=== PATIENT | female | born 1960 | race Caucasian/White ===

== ENCOUNTER → 2016-11-13 | Outpatient (CLI) | payer BC ==
--- NOTE | 2016-11-14 13:24 | MM ---
Reason for exam: screening (asymptomatic). Last mammogram was performed 6 months ago. History: Patient is postmenopausal and is nulliparous. Family history of breast cancer in mother at age 74. Benign MG stereo VAD BX RT of the right breast, November 23, 2015. Benign left mammotome panel of the left breast, April 02, 2006. Reductions of both breasts, 2000. Physical Findings: A clinical breast exam by your physician is recommended on an annual basis and results should be correlated with mammographic findings. MG Screening Mammo w CAD Bilateral CC and MLO view(s) were taken. Prior study comparison: May 30, 2016, right breast MG diagnostic mammo RT w CAD. September 29, 2015, bilateral MG 3d work up w/cad KELLY. Finding: There is an equal density (isodense), obscured round mass located 4 cm from the nipple in the lower outer quadrant, anterior position of the left breast, may have been on 09/27/15 not not 09/29/15. New finding since May 30, 2016 and September 29, 2015. ASSESSMENT: Incomplete: need additional imaging evaluation, BI-RAD 0 RECOMMENDATION: Special view mammogram of the left breast. If lesion persists on supplemental views, image directed ultrasound is recommended. [facility] will attempt to contact patient to return for supplemental views and ultrasound if indicated.
== END | disposition home or self-care (01) ==
LOC: RADMAMWWP 08:12
PROVIDERS: ATTEND Family Medicine
DX: Z12.31 Encounter for screening mammogram for malignant neoplasm of breast (principal)

== ENCOUNTER → 2017-11-14 | Outpatient (CLI) | payer BC ==
--- NOTE | 2017-11-17 07:10 | MM ---
Reason for exam: screening (asymptomatic). Last mammogram was performed 1 year ago. History: Patient is postmenopausal and is nulliparous. Family history of breast cancer in mother at age 74. Benign MG stereo VAD BX RT of the right breast, November 23, 2015. Benign left mammotome panel of the left breast, April 02, 2006. Reductions of both breasts, 2000. Physical Findings: A clinical breast exam by your physician is recommended on an annual basis and results should be correlated with mammographic findings. MG 3D Screening Mammo W/Cad Bilateral CC and MLO view(s) were taken. XCCL view(s) were taken of the left breast. Prior study comparison: November 13, 2016, bilateral MG screening mammo w CAD. May 30, 2016, right breast MG diagnostic mammo RT w CAD. The breast tissue is heterogeneously dense. This may lower the sensitivity of mammography. Finding: There are typically benign round calcifications in both breasts. Previous mammotome biopsy in the right and left breast. Asymmetric breast tissue in the left breast is stable. There is no discrete abnormality. ASSESSMENT: Benign, BI-RAD 2 RECOMMENDATION: Routine screening mammogram of both breasts in 1 year.
== END | disposition home or self-care (01) ==
LOC: RADMAMWWP 06:56
PROVIDERS: ATTEND Family Medicine
DX: Z12.31 Encounter for screening mammogram for malignant neoplasm of breast (principal)
CPT/HCPCS: 77063; 77067

== ENCOUNTER → 2018-05-20 | Outpatient (CLI) | payer BC ==
[2018-05-20 17:07] LABS: C Reactive Protein 0.5 mg/dL (0.0-0.8)
[2018-05-20 17:15] LABS: Protein, Total 6.5 g/dL (6.2-8.2); T4, Free (Free Thyroxine) 1.1 ng/dL (0.80-1.80)
[2018-05-20 19:50] LABS: Hemoglobin A1C 6.3 % (4.0-6.0)
[2018-05-22 09:35] LABS: Lyme IgG/IgM 0.2 Index
[2018-05-22 12:42] LABS: Albumin 4.04 g/dL (3.80-4.90); Gamma Globulin 0.78 g/dL (0.70-1.50)
== END | disposition home or self-care (01) ==
LOC: LABWHC1 09:07
PROVIDERS: ATTEND Psychiatry & Neurology Neurology
DX: G62.9 Polyneuropathy, unspecified (principal)
CPT/HCPCS: 36415; 82607; 82747; 83036; 84165; 84439; 84443; 85652; 86038; 86140; 86618

== ENCOUNTER 2018-10-27 07:30 | Emergency (ER) | payer BC ==
[2018-10-27 07:34] VITALS: RESP 18
[2018-10-27] MEDS ORDERED: SODIUM CHLORIDE 0.9% 1,000 ML IV STA (07:46)
[2018-10-27] MEDS ORDERED: ONDANSETRON 4 MG/2 ML VIAL IVP STA (07:46)
[2018-10-27] MEDS ORDERED: MECLIZINE 12.5 MG TAB PO STA (07:46)
--- NOTE | 2018-10-27 07:50 | ED ---
Nausea/Vomiting/Diarrhea HPI - General Chief complaint: Nausea/Vomiting/Diarrhea Stated complaint: sick to stomach/off balance Time Seen by Provider: 10/27/18 07:39 Source: patient, RN notes reviewed Mode of arrival: ambulatory Limitations: no limitations - History of Present Illness Initial comments: This a 58-year-old female presents emergency Department with chief complaint of dizziness and nausea. Patient states that she's had ongoing vertigo that happens once a month. Patient states she was diagnosed by her PCP. Patient states that she had increased nausea and which this was new for her along with some diarrhea yesterday. Denies any chest pain or shortness of breath no fever or chills. Patient denies any focal weakness no difficulty and bleeding other than feeling dizzy. She is not taking any Antivert or any other medications for her dizziness. Patient denies any recent URI symptoms no fever or chills. - Related Data Home Medications Medication Instructions Recorded Confirmed Diltiazem HCl [Diltiazem ER] 240 mg PO QAM 09/13/14 10/27/18 Montelukast Sodium [Singulair] 10 mg PO HS 09/13/14 10/27/18 Simvastatin [Zocor] 20 mg PO HS 09/13/14 10/27/18 Triamterene/Hydrochlorothiazid 1 cap PO QAM 09/13/14 10/27/18 [Dyazide 37.5-25 Capsule] Carvedilol [Coreg] 12.5 mg PO BID 11/27/15 10/27/18 Fluticasone Nasal [place] [Flonase 1 - 2 spray EA NOSTRIL DAILY PRN 11/27/15 10/27/18 Nasal [place]] Baclofen [Lioresal] 10 mg PO TID PRN 10/27/18 10/27/18 Ergocalciferol (Vitamin D2) 50,000 unit PO TH 10/27/18 10/27/18 [Vitamin D2] Lisinopril [Zestril] 20 mg PO DAILY 10/27/18 10/27/18 Omeprazole [PriLOSEC] 20 mg PO AC-BID 10/27/18 10/27/18 metFORMIN HCL [Glucophage] 500 mg PO BID 10/27/18 10/27/18 Previous Rx's Medication Instructions Recorded Cephalexin [Keflex] 500 mg PO Q8HR #15 cap 10/27/18 Meclizine [Antivert] 25 mg PO TID PRN #15 tab 10/27/18 Ondansetron Odt [Zofran Odt] 4 mg PO Q8HR PRN #10 tab 10/27/18 Allergies Allergy/AdvReac Type Severity Reaction Status Date / Time No Known Allergies Allergy Verified 10/27/18 08:06 Review of Systems ROS Statement: Those systems with pertinent positive or pertinent negative responses have been documented in the HPI. ROS Other: All systems not noted in ROS Statement are negative. Past Medical History Past Medical History: GERD/Reflux, Hyperlipidemia, Hypertension, Osteoarthritis (OA) Additional Past Medical History / Comment(s): OA in bilateral knees History of Any Multi-Drug Resistant Organisms: None Reported Past Surgical History: Breast Surgery, Cholecystectomy, Hernia Repair, Orthopedic Surgery, Uterine Ablation Additional Past Surgical History / Comment(s): Sx: orthoscopic bilateral knees "cleaned up, breast reduction, bilateral big toe spurs, ghazala fundoplication Past Anesthesia/Blood Transfusion Reactions: Previous Problems w/ Anesthesia, Postoperative Nausea & Vomiting (PONV) Additional Past Anesthesia/Blood Transfusion Reaction / Comment(s): "hard to wake up" Past Psychological History: Anxiety Smoking Status: Former smoker Past Alcohol Use History: None Reported Past Drug Use History: None Reported - Past Family History Mother Family Medical History: Cancer, Hypertension Additional Family Medical History / Comment(s): CA: breast Father Family Medical History: CVA/TIA Brother(s) Family Medical History: Deep Vein Thrombosis (DVT) General Exam Limitations: no limitations General appearance: alert, in no apparent distress Head exam: Present: atraumatic, normocephalic, normal inspection Eye exam: Present: normal appearance, PERRL, EOMI. Absent: scleral icterus, conjunctival injection, periorbital swelling ENT exam: Present: normal exam, normal oropharynx, mucous membranes moist Neck exam: Present: normal inspection, full ROM. Absent: tenderness, meningismus, lymphadenopathy Respiratory exam: Present: normal lung sounds bilaterally. Absent: respiratory distress, wheezes, rales, rhonchi, stridor Cardiovascular Exam: Present: regular rate, normal rhythm, normal heart sounds. Absent: systolic murmur, diastolic murmur, rubs, gallop, clicks GI/Abdominal exam: Present: soft, normal bowel sounds. Absent: distended, tenderness, guarding, rebound, rigid Extremities exam: Present: normal inspection, full ROM, normal capillary refill. Absent: tenderness, pedal edema, joint swelling, calf tenderness Neurological exam: Present: alert, oriented X3, CN II-XII intact, reflexes normal, other (Normal Romberg, [id number] intact [id number] intact). Absent: motor sensory deficit Skin exam: Present: warm, dry, intact, normal color. Absent: rash Course Vital Signs 10/27/18 10/27/18 07:32 09:05 Temperature 98.2 F Pulse Rate 80 75 Respiratory 18 18 Rate Blood Pressure 139/95 124/74 O2 Sat by Pulse 96 98 Oximetry Medical Decision Making - Medical Decision Making 58-year-old female presented for dizziness, nausea. Patient's had ongoing symptoms which have been on and off for several months. Patient has been diagnosed with vertigo. Patient is improved after antiemetics and Antivert. Patient's labwork shows mild acute kidney injury though this may be chronic in nature with no prior labs available. Patient does have evidence urinary tract infection. Patient will be discharged on antibiotics, antiemetics and Antivert. Patient will follow-up with ENT and return parameters were discussed. - Lab Data Result diagrams: 10/27/18 08:23 10/27/18 08:23 Lab Results 10/27/18 10/27/18 10/27/18 Range/Units 08:23 08:23 08:23 WBC 11.3 H (3.8-10.6) k/uL RBC 5.55 H (3.80-5.40) m/uL Hgb 16.9 H (11.4-16.0) gm/dL Hct 49.5 H (34.0-46.0) % MCV 89.2 (80.0-100.0) fL MCH 30.5 (25.0-35.0) pg MCHC 34.2 (31.0-37.0) g/dL RDW 12.7 (11.5-15.5) % Plt Count 373 (150-450) k/uL Neutrophils % 81 % Lymphocytes % 13 % Monocytes % 4 % Eosinophils % 1 % Basophils % 0 % Neutrophils # 9.2 H (1.3-7.7) k/uL Lymphocytes # 1.5 (1.0-4.8) k/uL Monocytes # 0.4 (0-1.0) k/uL Eosinophils # 0.1 (0-0.7) k/uL Basophils # 0.0 (0-0.2) k/uL Sodium 140 (137-145) mmol/L Potassium 5.2 H (3.5-5.1) mmol/L Chloride 104 (98-107) mmol/L Carbon Dioxide 26 (22-30) mmol/L Anion Gap 10 mmol/L BUN 22 H (7-17) mg/dL Creatinine 1.41 H (0.52-1.04) mg/dL Est GFR (CKD-EPI)AfAm 47 (>60 ml/min/1.73 sqM) Est GFR (CKD-EPI)NonAf 41 (>60 ml/min/1.73 sqM) Glucose 136 H (74-99) mg/dL Calcium 10.4 H (8.4-10.2) mg/dL Total Bilirubin 0.8 (0.2-1.3) mg/dL AST 23 (14-36) U/L ALT 37 (9-52) U/L Alkaline Phosphatase 82 (38-126) U/L Troponin I <0.012 (0.000-0.034) ng/mL Total Protein 7.5 (6.3-8.2) g/dL Albumin 4.6 (3.5-5.0) g/dL Urine Color Urine Appearance (Clear) Urine pH (5.0-8.0) Ur Specific [place] (1.001-1.035) Urine Protein (Negative) Urine Glucose (UA) (Negative) Urine Ketones (Negative) Urine Blood (Negative) Urine Nitrite (Negative) Urine Bilirubin (Negative) Urine Urobilinogen (<2.0) mg/dL Ur Leukocyte Esterase (Negative) Urine RBC (0-5) /hpf Urine WBC (0-5) /hpf Ur Squamous Epith Cells (0-4) /hpf Urine Bacteria (None) /hpf Urine Mucus (None) /hpf 10/27/18 Range/Units 08:45 WBC (3.8-10.6) k/uL RBC (3.80-5.40) m/uL Hgb (11.4-16.0) gm/dL Hct (34.0-46.0) % MCV (80.0-100.0) fL MCH (25.0-35.0) pg MCHC (31.0-37.0) g/dL RDW (11.5-15.5) % Plt Count (150-450) k/uL Neutrophils % % Lymphocytes % % Monocytes % % Eosinophils % % Basophils % % Neutrophils # (1.3-7.7) k/uL Lymphocytes # (1.0-4.8) k/uL Monocytes # (0-1.0) k/uL Eosinophils # (0-0.7) k/uL Basophils # (0-0.2) k/uL Sodium (137-145) mmol/L Potassium (3.5-5.1) mmol/L Chloride (98-107) mmol/L Carbon Dioxide (22-30) mmol/L Anion Gap mmol/L BUN (7-17) mg/dL Creatinine (0.52-1.04) mg/dL Est GFR (CKD-EPI)AfAm (>60 ml/min/1.73 sqM) Est GFR (CKD-EPI)NonAf (>60 ml/min/1.73 sqM) Glucose (74-99) mg/dL Calcium (8.4-10.2) mg/dL Total Bilirubin (0.2-1.3) mg/dL AST (14-36) U/L ALT (9-52) U/L Alkaline Phosphatase (38-126) U/L Troponin I (0.000-0.034) ng/mL Total Protein (6.3-8.2) g/dL Albumin (3.5-5.0) g/dL Urine Color Yellow Urine Appearance Cloudy H (Clear) Urine pH 5.5 (5.0-8.0) Ur Specific [place] 1.019 (1.001-1.035) Urine Protein Negative (Negative) Urine Glucose (UA) Negative (Negative) Urine Ketones Negative (Negative) Urine Blood Negative (Negative) Urine Nitrite Negative (Negative) Urine Bilirubin Negative (Negative) Urine Urobilinogen <2.0 (<2.0) mg/dL Ur Leukocyte Esterase Moderate H (Negative) Urine RBC 11 H (0-5) /hpf Urine WBC 12 H (0-5) /hpf Ur Squamous Epith Cells <1 (0-4) /hpf Urine Bacteria Occasional H (None) /hpf Urine Mucus Rare H (None) /hpf - EKG Data EKG Comments: EKG performed at 8:17 normal sinus rhythm with rate of 75 [place] 184 QRS 88 QT/QTC 400/446 Disposition Clinical Impression: Vertigo, UTI (urinary tract infection), Dehydration Disposition: HOME SELF-CARE Condition: Stable Instructions (If sedation given, give patient instructions): Vertigo (ED) Additional Instructions: Please return to the Emergency Department if symptoms worsen or any other concerns. Prescriptions: Meclizine [Antivert] 25 mg PO TID PRN #15 tab PRN Reason: Vertigo Cephalexin [Keflex] 500 mg PO Q8HR #15 cap Ondansetron Odt [Zofran Odt] 4 mg PO Q8HR PRN #10 tab PRN Reason: Nausea Is patient prescribed a controlled substance at d/c from ED?: No Referrals: Kourtney Day DO [Primary Care Provider] - 1-2 days Time of Disposition: 09:46
[2018-10-27 08:53] LABS: Basophils % (A) 0 %; Eosinophils # (A) 0.1 k/uL (0-0.7); Eosinophils % (A) 1 %; HCT 49.5 % (34.0-46.0); HGB 16.9 gm/dL (11.4-16.0); Lymphocytes # (A) 1.5 k/uL (1.0-4.8); Lymphocytes % (A) 13 %; MCH 30.5 pg (25.0-35.0); MCHC 34.2 g/dL (31.0-37.0); MCV 89.2 fL (80.0-100.0); Mean Platelet Volume 6.6; Monocytes # (A) 0.4 k/uL (0-1.0); Monocytes % (A) 4 %; Neutrophils # (A) 9.2 k/uL (1.3-7.7); Neutrophils % (A) 81 %; Platelet Count 373 k/uL (150-450); RBC 5.55 m/uL (3.80-5.40); RDW 12.7 % (11.5-15.5); WBC 11.3 k/uL (3.8-10.6)
[2018-10-27 09:06] LABS: Albumin 4.6 g/dL (3.5-5.0); Calcium 10.4 mg/dL (8.4-10.2); Potassium 5.2 mmol/L (3.5-5.1); Total Bilirubin 0.8 mg/dL (0.2-1.3); Total Protein 7.5 g/dL (6.3-8.2)
[2018-10-27 09:12] LABS: Appearance,Urine Cloudy (Clear); Bacteria,Urine Occasional /hpf; Bilirubin,Urine Negative (Negative); Blood,Urine Negative (Negative); Color,Urine Yellow; Glucose,Urine (UA) Negative (Negative); Ketones,Urine Negative (Negative); Leukocyte Esterase,Urine Moderate (Negative); Mucus,Urine Rare /hpf; Nitrite,Urine Negative (Negative); PH, Urine 5.5 (5.0-8.0); Protein,Urine Negative (Negative); RBC,Urine 11 /hpf (0-5); Specific Gravity,Urine 1.019 (1.001-1.035); Squamous Epithelial Cell,Urine <1 /hpf (0-4); Urobilinogen,Urine <2.0 mg/dL (<2.0); WBC,Urine 12 /hpf (0-5)
[2018-10-27 10:13] VITALS: BP 139/78; PULSE 71; TEMP 98.5
== END 2018-10-27 10:13 | disposition home or self-care (01) ==
LOC: EC 07:30
DX: E86.0 Dehydration (principal); N39.0 Urinary tract infection, site not specified; K21.9 Gastro-esophageal reflux disease without esophagitis; E78.5 Hyperlipidemia, unspecified; I10 Essential (primary) hypertension; F41.9 Anxiety disorder, unspecified; M17.0 Bilateral primary osteoarthritis of knee; Z87.891 Personal history of nicotine dependence; Z79.84 Long term (current) use of oral hypoglycemic drugs; Z79.899 Other long term (current) drug therapy; Z90.49 Acquired absence of other specified parts of digestive tract
CPT/HCPCS: 36415; 93005; 80053; 84484; 85025; 81001; 99284; 96374; 96361 ×2; J2405

== ENCOUNTER → 2018-11-26 | Outpatient (CLI) | payer BC ==
--- NOTE | 2018-11-27 13:04 | MM ---
Reason for exam: screening (asymptomatic). Last mammogram was performed 1 year ago. History: Patient is postmenopausal and is nulliparous. Family history of breast cancer in mother at age 74. Benign MG stereo VAD BX RT of the right breast, November 23, 2015. Benign left mammotome panel of the left breast, April 02, 2006. Reductions of both breasts, 2000. Physical Findings: A clinical breast exam by your physician is recommended on an annual basis and results should be correlated with mammographic findings. MG 3D Screening Mammo W/Cad Bilateral CC and MLO view(s) were taken. Prior study comparison: November 14, 2017, bilateral MG 3d screening mammo w/cad. November 13, 2016, bilateral MG screening mammo w CAD. The breast tissue is heterogeneously dense. This may lower the sensitivity of mammography. Nodular denisty central lower left breast anterior third position. This finding is changed when compared with previous exams. ASSESSMENT: Incomplete: need additional imaging evaluation, BI-RAD 0 RECOMMENDATION: Special view mammogram of the left breast. If lesion persists on supplemental views, image directed ultrasound is recommended. [facility] will attempt to contact patient to return for supplemental views and ultrasound if indicated.
== END ==
LOC: RADMAMWWP 14:42
PROVIDERS: ATTEND Family Medicine
DX: Z12.31 Encounter for screening mammogram for malignant neoplasm of breast (principal)
CPT/HCPCS: 77063; 77067

== ENCOUNTER → 2018-12-03 | Outpatient (CLI) | payer BC | END | disposition home or self-care (01) | LOC: RADMRIMAIN 09:23 | PROVIDERS: ATTEND Otolaryngology | DX: Z53.9 Procedure and treatment not carried out, unspecified reason (principal) ==

== ENCOUNTER → 2018-12-16 | Outpatient (CLI) | payer BC | LOC: NEUROMAIN 06:54 | PROVIDERS: ATTEND Otolaryngology | DX: Z53.9 Procedure and treatment not carried out, unspecified reason (principal) ==

== ENCOUNTER → 2018-12-22 | Outpatient (CLI) | payer BC ==
--- NOTE | 2018-12-22 11:36 | CT ---
EXAMINATION TYPE: CT iac w con DATE OF EXAM: 12/22/2018 COMPARISON: None HISTORY: dizziness for approximately one year CT DLP: 150 mGycm Automated exposure control for dose reduction was used. CONTRAST: CT scan of the IACs is performed with IV Contrast, patient injected with 100 mL of Isovue 300. FINDINGS: The external auditory canals are patent bilaterally. Mastoid air cells show no evidence of abnormal opacification bilaterally. The middle ear ossicles are symmetric and unremarkable. No cerebellopontine angle mass. Changes of chronic sinusitis noted. Left vertebral artery dominant. Intracranial atherosclerotic changes noted. Nasal septal deviation no daniel. There is a rory bullosa on the right. There is no evidence of suspicious surrounding soft tissue density to suggest cholesteatoma. The scu panchito is preserved bilaterally. The cochlea and the semicircular canals are symmetric and unremarkable. Vestibular aqueduct and inte rnal carotid canal appear unremarkable. Temporomandibular joints are maintained bilaterally. IMPRESSION: No significant abnormality seen to account for patient's symptoms.
== END ==
LOC: RADCTMAIN 10:21
PROVIDERS: ATTEND Otolaryngology
DX: H93.3X9 Disorders of unspecified acoustic nerve (principal); H91.90 Unspecified hearing loss, unspecified ear
CPT/HCPCS: 82565; 84520; 70481; 36415; Q9967

== ENCOUNTER → 2020-02-03 | Outpatient (CLI) | payer BC ==
--- NOTE | 2020-02-04 10:19 | MM ---
Reason for exam: screening (asymptomatic). Last mammogram was performed 1 year and 2 months ago. History: Patient is postmenopausal and is nulliparous. Family history of breast cancer in mother at age 74. Benign MG stereo VAD BX RT of the right breast, November 23, 2015. Benign left mammotome panel of the left breast, April 02, 2006. Reductions of both breasts, 2000. Physical Findings: A clinical breast exam by your physician is recommended on an annual basis and results should be correlated with mammographic findings. MG 3D Screening Mammo W/Cad Bilateral CC and MLO view(s) were taken. Prior study comparison: November 26, 2018, bilateral MG 3d screening mammo w/cad. November 14, 2017, bilateral MG 3d screening mammo w/cad. The breast tissue is heterogeneously dense. This may lower the sensitivity of mammography. There is chronic nodularity in the right breast. There is no dominant lesion. No significant changes when compared with prior studies. ASSESSMENT: Benign, BI-RAD 2 RECOMMENDATION: Routine screening mammogram of both breasts in 1 year.
== END | disposition home or self-care (01) ==
LOC: RADMAMWWP 09:54
PROVIDERS: ATTEND Family Medicine
DX: Z12.31 Encounter for screening mammogram for malignant neoplasm of breast (principal); Z80.3 Family history of malignant neoplasm of breast
CPT/HCPCS: 77063; 77067

== ENCOUNTER 2020-08-17 07:44 | Day surgery (SDC) | payer BC ==
[2020-08-16 08:17] VITALS: BMI 40.3
[~2020-08-17 07:44] MED LIST: LACTATED RINGERS 1,000 ML IV SCH; LIDOCAINE 1% (10MG/ML) FOR IV START INTRADERMA PRN
[2020-08-17 08:25] VITALS: TEMP 98.3
[2020-08-17 08:29] LABS: Glucose,Whole Blood 119 mg/dL (75-99)
[2020-08-17] MEDS ORDERED: LIDOCAINE 1% INJ 10MG/ML (20 ML MDV) ONE (08:50)
[2020-08-17] MEDS ORDERED: fentaNYL (PF) 50 MCG/ML 2 ML AMP ONE (08:50)
[2020-08-17] MEDS ORDERED: PROPOFOL 10 MG/ML 20 ML VIAL IV ONE (08:50)
[2020-08-17] MEDS ORDERED: MIDAZOLAM 2 MG/2 ML VIAL ONE (08:50)
--- NOTE | 2020-08-17 08:59 | P.GSHP ---
History of Present Illness H&P Date: 08/17/20 Chief Complaint: GERD This 60-year-old female who presents today for EGD. She's had issues with GERD. She's a previous hiatal hernia repair prostate 8 years ago. Past Medical History Past Medical History: Diabetes Mellitus, GERD/Reflux, Hyperlipidemia, Hypertension, Osteoarthritis (OA) Additional Past Medical History / Comment(s): OA in bilateral knees. HAS BEEN HAVING RUQ PAIN History of Any Multi-Drug Resistant Organisms: None Reported Past Surgical History: Breast Surgery, Cholecystectomy, Hernia Repair, Orthopedic Surgery, Uterine Ablation Additional Past Surgical History / Comment(s): Sx: orthoscopic bilateral knees "cleaned up, breast reduction, bilateral big toe spurs, ghazala fundoplication, BILAT BREAST BIOPSY, COLONOSCOPY, EGD Past Anesthesia/Blood Transfusion Reactions: Previous Problems w/ Anesthesia, Postoperative Nausea & Vomiting (PONV) Additional Past Anesthesia/Blood Transfusion Reaction / Comment(s): "hard to wake up" Smoking Status: Former smoker - Past Family History Mother Family Medical History: Cancer, Hypertension Additional Family Medical History / Comment(s): CA: breast Father Family Medical History: CVA/TIA Brother(s) Family Medical History: Deep Vein Thrombosis (DVT) Medications and Allergies Home Medications Medication Instructions Recorded Confirmed Type Diltiazem HCl [Diltiazem ER] 240 mg PO QAM 09/13/14 08/17/20 History Montelukast Sodium [Singulair] 10 mg PO HS 09/13/14 08/17/20 History Simvastatin [Zocor] 20 mg PO HS 09/13/14 08/17/20 History Triamterene/Hydrochlorothiazid 1 cap PO QAM 09/13/14 08/17/20 History [Dyazide 37.5-25 Capsule] Carvedilol [Coreg] 12.5 mg PO BID 11/27/15 08/17/20 History Fluticasone Nasal [place] [Flonase 1 - 2 spray EA NOSTRIL DAILY PRN 11/27/15 08/17/20 History Nasal [place]] Baclofen [Lioresal] 10 mg PO TID PRN 10/27/18 08/17/20 History Ergocalciferol (Vitamin D2) 50,000 unit PO TH 10/27/18 08/17/20 History [Vitamin D2] Omeprazole [PriLOSEC] 20 mg PO AC-BID 10/27/18 08/17/20 History lisinopriL [Zestril] 20 mg PO DAILY 10/27/18 08/17/20 History metFORMIN HCL [Glucophage] 500 mg PO BID 10/27/18 08/17/20 History Loratadine [Claritin] 10 mg PO DAILY 08/16/20 08/17/20 History Allergies Allergy/AdvReac Type Severity Reaction Status Date / Time No Known Allergies Allergy Verified 08/17/20 08:12 Surgical - Exam Vital Signs Temp Pulse Resp BP Pulse Ox 98.3 F 82 18 96/64 97 08/17/20 08:23 08/17/20 08:23 08/17/20 08:23 08/17/20 08:23 08/17/20 08:23 - General well developed, well nourished, no distress - Eyes PERRL - ENT normal pinna - Neck no masses - Respiratory normal expansion - Cardiovascular Rhythm: regular - Abdomen Abdomen: soft, non tender Results - Labs Abnormal Lab Results - Last 24 Hours (Table) 08/17/20 Range/Units 08:22 POC Glucose (mg/dL) 119 H (75-99) mg/dL Assessment and Plan Assessment: GERD. We'll perform EGD.
--- NOTE | 2020-08-17 09:07 | P.OP ---
Date of Procedure: 08/17/20 Preoperative Diagnosis: GERD Postoperative Diagnosis: Antral gastritis Procedure(s) Performed: EGD Anesthesia: MAC Surgeon: Montrell Sher Pathology: other (Antral gastritis) Condition: stable Disposition: PACU Description of Procedure: The patient's placed on the endoscopy table in the lateral position. She received IV sedation. The gastroscope placed oropharynx passed in the esophagus and into the stomach. Scope was then placed through the pylorus. First and second portion of the duodenum appeared normal. Scope summer back the antrum and this appeared mildly inflamed. A biopsies performed. Scope was then retroflexed and remainder stomach appeared normal. There was no significant hiatal hernia. The GE junction was at 40 cm The distal esophagus appeared normal. The proximal esophagus appeared normal. Scope was withdrawn for patient.
[2020-08-17 09:13] VITALS: PULSE 70; RESP 16
[2020-08-17 09:24] VITALS: BP 97/65
== END 2020-08-17 09:50 | disposition home or self-care (01) ==
LOC: ORWHC2ENDO 07:44
PROVIDERS: ATTEND Surgery
DX: K29.50 Unspecified chronic gastritis without bleeding (principal); K21.9 Gastro-esophageal reflux disease without esophagitis; I10 Essential (primary) hypertension; E78.5 Hyperlipidemia, unspecified; E11.9 Type 2 diabetes mellitus without complications; M19.90 Unspecified osteoarthritis, unspecified site; F41.9 Anxiety disorder, unspecified; Z79.02 Long term (current) use of antithrombotics/antiplatelets; Z79.84 Long term (current) use of oral hypoglycemic drugs; Z79.899 Other long term (current) drug therapy; Z98.890 Other specified postprocedural states; E66.9 Obesity, unspecified; Z68.41 Body mass index [BMI] 40.0-44.9, adult; Z80.3 Family history of malignant neoplasm of breast; Z82.49 Family history of ischemic heart disease and other diseases of the circulatory system; Z87.891 Personal history of nicotine dependence
CPT/HCPCS: 88305; 43239; J2250; J2001; J3010; J2704

== ENCOUNTER → 2020-09-07 | Outpatient (CLI) | payer BC ==
--- NOTE | 2020-09-07 09:27 | FL ---
EXAMINATION TYPE: FL UGI air w esophagus DATE OF EXAM: 09/07/2020 8:59 AM COMPARISON: NONE CLINICAL HISTORY: R10.13 dysphagia. Status post Tim fundoplication. Upper GI examination was performed according to the single contrast technique. Barium was swallowed w ithout difficulty or delay. Esophageal peristalsis and motility are within normal limits. There is no evidence for esophagitis, intraluminal mass, hiatal hernia or gastroesophageal reflux. Postsurgica l changes of the prior Tim fundoplication. The stomach has a normal appearance in terms of its siz e, shape and location. No gastric filling defects or ulcer craters are seen. The duodenal bulb and sweep are also free of intraluminal lesion or ulcer crater. IMPRESSION: Postsurgical changes of the prior Tim fundoplication. No evidence for recurrent or residual hiatal hernia.
== END | disposition home or self-care (01) ==
LOC: RADFLMAIN 07:55
PROVIDERS: ATTEND Surgery
DX: R13.10 Dysphagia, unspecified (principal); Z98.890 Other specified postprocedural states
CPT/HCPCS: 74246

== ENCOUNTER → 2021-03-15 | Outpatient (CLI) | payer BC ==
--- NOTE | 2021-03-19 12:40 | MM ---
Reason for exam: screening (asymptomatic). Last mammogram was performed 1 year and 1 month ago. History: Patient is postmenopausal and is nulliparous. Family history of breast cancer in mother at age 74. Benign MG stereo VAD BX RT of the right breast, November 23, 2015. Benign left mammotome panel of the left breast, April 02, 2006. Reductions of both breasts, 2000. Physical Findings: A clinical breast exam by your physician is recommended on an annual basis and results should be correlated with mammographic findings. MG 3D Screening Mammo W/Cad Bilateral CC and MLO view(s) were taken. Prior study comparison: February 03, 2020, bilateral MG 3d screening mammo w/cad. November 26, 2018, bilateral MG 3d screening mammo w/cad. November 14, 2017, bilateral MG 3d screening mammo w/cad. November 13, 2016, bilateral MG screening mammo w CAD. There are scattered fibroglandular densities. Finding: There are indeterminate calcifications in the lower outer quadrant of the right breast 7-8cm from the nipple. New finding since February 03, 2020, November 26, 2018, November 14, 2017, and November 13, 2016. ASSESSMENT: Incomplete: need additional imaging evaluation, BI-RAD 0 RECOMMENDATION: Special view mammogram of the right breast. [facility] will attempt to contact patient to return for supplemental views.
== END | disposition home or self-care (01) ==
LOC: RADMAMWWP 13:31
PROVIDERS: ATTEND Family Medicine
DX: Z12.31 Encounter for screening mammogram for malignant neoplasm of breast (principal); Z80.3 Family history of malignant neoplasm of breast
CPT/HCPCS: 77063; 77067

== ENCOUNTER → 2021-04-10 | Outpatient (CLI) | payer BC ==
--- NOTE | 2021-04-11 08:24 | MM ---
Reason for exam: additional evaluation requested from abnormal screening. Last mammogram was performed 1 month ago. History: Patient is postmenopausal and is nulliparous. Family history of breast cancer in mother at age 74. Benign MG stereo VAD BX RT of the right breast, November 23, 2015. Benign left mammotome panel of the left breast, April 02, 2006. Reductions of both breasts, 2000. Physical Findings: Nurse did not find any significant physical abnormalities on exam. MG Work Up Mamm w CAD RT CC with magnification, LM with magnification, and CC view(s) were taken of the right breast. Prior study comparison: March 15, 2021, bilateral MG 3d screening mammo w/cad. February 03, 2020, bilateral MG 3d screening mammo w/cad. There are scattered fibroglandular densities. Finding: There are four grouped/clustered, fine calcifications in the upper outer quadrant, middle position of the right breast, 8cm from the nipple consistent with 2020. These results were verbally communicated with the patient and result sheet given to the patient on 04/10/21. ASSESSMENT: Probably benign, BI-RAD 3 RECOMMENDATION: Follow-up diagnostic mammogram of the right breast in 6 months. (plus magnification views)
== END | disposition home or self-care (01) ==
LOC: RADMAMWWP 13:29
PROVIDERS: ATTEND Family Medicine
DX: R92.8 Other abnormal and inconclusive findings on diagnostic imaging of breast (principal)
CPT/HCPCS: 77065

== ENCOUNTER → 2021-04-24 | Outpatient (CLI) | payer BC | END | disposition home or self-care (01) | LOC: LABWHC1 11:11 | PROVIDERS: ATTEND Psychiatry & Neurology Neurology | DX: G62.9 Polyneuropathy, unspecified (principal) | CPT/HCPCS: 36415; 82607 ==

== ENCOUNTER → 2021-10-09 | Outpatient (CLI) | payer BC ==
--- NOTE | 2021-10-09 11:58 | MM ---
Reason for exam: follow-up at short interval from prior study. Last mammogram was performed 6 months ago. History: Patient is postmenopausal and is nulliparous. Family history of breast cancer in mother at age 74. Benign MG stereo VAD BX RT of the right breast, November 23, 2015. Benign left mammotome panel of the left breast, April 02, 2006. Reductions of both breasts, 2000. Physical Findings: A clinical breast exam by your physician is recommended on an annual basis and results should be correlated with mammographic findings. MG 3D Diag Mammo W/Cad RT CC and MLO view(s) were taken of the right breast. Prior study comparison: March 15, 2021, bilateral MG 3d screening mammo w/cad. February 03, 2020, bilateral MG 3d screening mammo w/cad. There are scattered fibroglandular densities. There are few, stable, benign appearing round calcifications. Previous mammotome biopsy in the right breast. There is chronic nodularity in the right breast. There is no discrete abnormality. ASSESSMENT: Benign, BI-RAD 2 RECOMMENDATION: Return to routine screening mammogram schedule for both breasts. Back on schedule.
== END | disposition home or self-care (01) ==
LOC: RADMAMWWP 09:33
PROVIDERS: ATTEND Family Medicine
DX: N63.0 Unspecified lump in unspecified breast (principal)
CPT/HCPCS: 77061; 77065

== ENCOUNTER → 2021-11-07 | Outpatient (CLI) | payer BC ==
[~2021-11-07] MED LIST changes: -LACTATED RINGERS 1,000 ML IV SCH; -LIDOCAINE 1% (10MG/ML) FOR IV START INTRADERMA PRN; +SODIUM CHLORIDE 0.9% 1,000 ML IV NR; +SODIUM CHLORIDE 0.9% 500 ML 500 ML in EMPTY BAG 1 BAG IV PRN
[2021-11-07] MEDS: SODIUM CHLORIDE 0.9% 500 ML 500 ML IV NR ×2 (11:14→11:47)
[2021-11-07 11:16] VITALS: BP 127/78; PULSE 79; RESP 16; TEMP 98.5
== END | disposition home or self-care (01) ==
LOC: PROCWHC3 10:47
PROVIDERS: ATTEND Family Medicine
DX: R93.429 Abnormal radiologic findings on diagnostic imaging of unspecified kidney (principal)
CPT/HCPCS: 36415; 82565; 84520; 96360

== ENCOUNTER → 2021-11-07 | Outpatient (CLI) | payer BC ==
--- NOTE | 2021-11-07 14:02 | CT ---
EXAMINATION TYPE: CT abdomen wo/w con DATE OF EXAM: 11/07/2021 COMPARISON: None available HISTORY: abnormal kidney US CT DLP: 2400 mGycm Automated exposure control for dose reduction was used. TECHNIQUE: Helical acquisition of images was performed from the lung bases through the top of iliac crest to include entire abdomen. CONTRAST: Performed without Oral Contrast and without and with IV Contrast, patient injected with 80ml mL of Is ovue 300. FINDINGS: LUNG BASES: Minimal bilateral pleural fluid. LIVER/GB: Previous cholecystectomy. Enlarged liver measuring 18.1 cm. No definite hepatic focal lesio n identified. PANCREAS: No significant abnormality is seen. SPLEEN: No significant abnormality is seen. ADRENALS: No significant abnormality is seen. KIDNEYS: Multiple variable sized bilateral renal cysts without suspicious feature or enhancement kia uring up to 2.1 cm on the right side and 7.1 cm on the left side consistent with benign simple cysts. No definite suspicious renal lesion identified. No hydroureter or hydronephrosis. Bilateral perineph yanet fat stranding and reactive fluid, nonspecific. BOWEL: Questionable previous fundoplication of the stomach, otherwise unremarkable nondistended stom ach, duodenum and visualized small bowel. No significant abnormality of the visualized portion of the colon. LYMPH NODES: No pathologically enlarged abdominal lymph nodes. OSSEOUS STRUCTURES: Degenerative changes of the lower thoracic and lower lumbar spine. No aggressive bone lesion. FREE AIR: No free air is visualized. OTHER: No free abdominal fluid. IMPRESSION: Bilateral renal cysts without suspicious feature or abnormal enhancement as described above consisten t with benign renal cysts. No suspicious renal lesion. Incidental findings as described above.
== END | disposition home or self-care (01) ==
LOC: RADCTMAIN 13:01
PROVIDERS: ATTEND Family Medicine
DX: N28.1 Cyst of kidney, acquired (principal); R93.429 Abnormal radiologic findings on diagnostic imaging of unspecified kidney
CPT/HCPCS: 74170; Q9967

== ENCOUNTER → 2022-03-18 | Outpatient (CLI) | payer BC ==
--- NOTE | 2022-03-18 09:56 | MM ---
Reason for Exam: Screening (asymptomatic). Last screening mammogram was performed 12 month(s) ago. Patient History: Menarche at age 10. Patient has no children. Postmenopausal. 2000, Bilateral Reduction. 11/23/2015, Benign Core Biopsy on the right side. 04/02/2006, Benign Core Biopsy on the left side. Mother had breast cancer, age 74. Risk Values: Riish 5 year model risk: 4.9%. NCI Lifetime model risk: 20.7%. Prior Study Comparison: 03/15/2021 Bilateral Screening Mammogram, [facility]. 04/10/2021 Right Diagnostic Mammogram, [facility]. 10/09/2021 Right Diagnostic Mammogram, [facility]. Tissue Density: There are scattered fibroglandular densities. Findings: Analyzed By CAD. Unchanged clustered of calcifications in the right breast middle depth laterally. There is a biopsy clip in the right breast. Bilateral breast reduction changes. There is no suspicious group of microcalcifications or new suspicious mass in either breast. Overall Assessment: Benign, BI-RAD 2 Management: Screening Mammogram of both breasts in 1 year. A clinical breast exam by your physician is recommended on an annual basis and results should be correlated with mammographic findings. Electronically signed and approved by: Manan Webb DO
== END | disposition home or self-care (01) ==
LOC: RADMAMWWP 08:17
PROVIDERS: ATTEND Family Medicine
DX: Z12.31 Encounter for screening mammogram for malignant neoplasm of breast (principal)
CPT/HCPCS: 77063; 77067

== ENCOUNTER → 2023-03-25 | Outpatient (CLI) | payer BC ==
--- NOTE | 2023-03-26 08:33 | MM ---
Reason for Exam: Screening (asymptomatic). Last mammogram was performed 1 year(s) and 1 month(s) ago. Patient History: Menarche at age 10. Patient has no children. Postmenopausal. 2000, Bilateral Reduction. 11/23/2015, Benign Core Biopsy on the right side. 04/02/2006, Benign Core Biopsy on the left side. Mother had breast cancer, age 74. Risk Values: Irish 5 year model risk: 5.1%. NCI Lifetime model risk: 20.1%. Prior Study Comparison: 04/10/2021 Right Diagnostic Mammogram, [facility]. 10/09/2021 Right Diagnostic Mammogram, [facility]. 03/18/2022 Bilateral MG 3D screening mammo w/cad, [facility]. Tissue Density: There are scattered fibroglandular densities. Findings: Analyzed By CAD. There is no suspicious group of microcalcifications or new suspicious mass in either breast. Biopsy clips within both breasts. Bilateral breast reduction changes. Stable benign calcifications within both breasts. Overall Assessment: Benign, BI-RAD 2 Management: Screening Mammogram of both breasts in 1 year. A clinical breast exam by your physician is recommended on an annual basis and results should be correlated with mammographic findings. Note on Irish scores and lifetime risk: 1. A Irish score greater than 3% is considered moderate risk. If this is the case, consider specialist referral to assess eligibility for a risk reducing agent. If overall lifetime risk for the development of breast cancer is 20% or higher, the patient may qualify for future screening with alternating mammogram and breast MRI. Electronically signed and approved by: Vega Rhoades D.O.
== END | disposition home or self-care (01) ==
LOC: RADMAMWWP 07:49
PROVIDERS: ATTEND Family Medicine
DX: Z12.31 Encounter for screening mammogram for malignant neoplasm of breast (principal); Z78.0 Asymptomatic menopausal state; Z80.3 Family history of malignant neoplasm of breast
CPT/HCPCS: 77063; 77067

== ENCOUNTER → 2024-03-30 | Outpatient (CLI) | payer BC ==
--- NOTE | 2024-03-30 13:47 | MM ---
Reason for Exam: Screening (asymptomatic). Last screening mammogram was performed 12 month(s) ago. Patient History: Menarche at age 10. Patient has no children. Postmenopausal. 2000, Bilateral Reduction. 11/23/2015, Benign Core Biopsy on the right side. 04/02/2006, Benign Core Biopsy on the left side. Mother had breast cancer, age 74. Risk Values: Irish 5 year model risk: 5.2%. NCI Lifetime model risk: 19.5%. Prior Study Comparison: 10/09/2021 Right Diagnostic Mammogram, [facility]. 03/18/2022 Bilateral MG 3D screening mammo w/cad, [facility]. 03/25/2023 Bilateral MG 3D screening mammo w/cad, [facility]. Tissue Density: The breasts are heterogeneously dense, which may obscure small masses. Findings: Analyzed By CAD. There is no suspicious group of microcalcifications or new suspicious mass in either breast. Overall Assessment: Benign, BI-RAD 2 Management: Screening Mammogram of both breasts in 1 year. . Patient should continue monthly self-breast exams. A clinical breast exam by your physician is recommended on an annual basis. This exam should not preclude additional follow-up of suspicious palpable abnormalities. Note on Irish scores and lifetime risk: 1. A Irish score greater than 3% is considered moderate risk. If this is the case, consider specialist referral to assess eligibility for a risk reducing agent. 2. If overall lifetime risk for the development of breast cancer is 20% or higher, the patient may qualify for future screening with alternating mammogram and breast MRI. Electronically signed and approved by: Mark Christiansen M.D. Radiologis
== END | disposition home or self-care (01) ==
LOC: RADMAMWWP 07:23
PROVIDERS: ATTEND Family Medicine
DX: Z80.3 Family history of malignant neoplasm of breast
CPT/HCPCS: 77063; 77067

== ENCOUNTER → 2025-02-09 | Outpatient (CLI) | payer BC, MEDICARE ==
[2025-02-09 08:34] VITALS: BP 109/69; PULSE 85; RESP 16
--- NOTE | 2025-02-09 15:55 | P.PAINPG ---
PQRS Measure Charge Sheet Comment: HISTORY OF PRESENT ILLNESS: A 64 yr old female as a referral from Dr Kourtney Day presents today w severe and chronic neck pain > 1 yr secondary to radiculopathy, spondylosis and facet arthropathy without myelopathy for evaluation. Pt states pain level is provoked at 8 /10 in intensity, constant, localized in the lower cervical spine, predominantly axial, sharp in character w occasional shooting pain towards the R> L shoulders. Pain is provoked by over head reaching. Pain is alleviated by chiropractic treatments semi monthly since Sep 2024 which she is currently in , ice, medications, manual massage, repositioning and rest . Cervical disability score at 36. PMH: OA, NIDDM II, GERD, Hyperlipidemia, HTN PSH: Breast Reduction, Cholecystectomy, Hernia Repair, Uterine Ablation, Colonoscopy/ EGD SH: Former tobacco user, Occ ETOH use, No illicit drug use FH: Mo- Breast CA. Fa- CVA. Bro- DVT All: See list Medications include Neurontin, Baclofen REVIEW OF ORGAN SYSTEMS: CONSTITUTIONAL: No fevers or chills. No recent weight loss. NEUROLOGICAL: + numbness and tingling along the distal extremities. No seizure disorders or headaches. MUSCULOSKELETAL: + pain PSYCHIATRIC: Denies current depression or suicidal tho ughts. Physical Examinations : Constitutional : Cooperative , not in acute distress . Neurologic : Cranial nerve II to XII intact. No focal neurological deficits. Psychiatric : alert & oriented x 3. Matching mood & appropriate affect. Judgment & insight intact. Musculoskeletal : Cervical Spine Motor strength in the deltoid and biceps: Normal right side. Normal Left side Motor strength biceps and the wrist extensors: Normal right side . Normal left side Motor strength in the triceps muscle: Normal right side. Normal left side Deep tendon reflexes: Normal at the biceps. Normal at Brachioradialis. Normal at triceps Lhermitte Sign (cervical flexion) positive Vertebral body tenderness to deep palpation over C6 Cervical facet loading test: positive bilaterally Spurling test: positive bilaterally Neck distraction test: positive BL C6- C7 R> L Guillermina sign: positive bilaterally Shoulders Muscle bulk/ tone/ strength BL Resisted Internal Rotation positive R / positive L Resisted External Rotation positive R / positive L Empty Can Test positive R / positive L Drop Arm Test positive R / positive L Lumbar spine Motor strength lower extremities ,thigh and legs 5/5 Right side , 5/5 Left side Deep tendon reflexes : Normal Knee Jerk. Normal Ankle Jerk Vertebral body tenderness over Proctor Test positive Lumbar facet Loading Test: positive Right / positive Left Range of motion of the lumbar spine Flexion 30 degrees, extension 10 degrees Straight Leg Raise test: Left/ Right positive at degrees Drop foot reflex: positive R / positive L Peter test: positive right / positive left. Severe tenderness over the Sacroiliac joint on the Right / Left sides Gaenslen test: positive bilaterally Sacral spine : Severe tenderness over the Sacroiliac joint: right side / left side Range of motion: Flexion of the lumbar spine <60 degrees Range of motion: Extension of the lumbar spine <20 degrees Gaenslen's Test positive Peter test: positive right side / left side Thigh Thrust Test Sacral Thrust Test Hip Joint Antalgic walking gait positive Trendelenburg positive R / positive L Imaging: MRI non contrast cervical spine from 12/27/24 reviewed Assessment/ Plan : multilevel cervical radiculopathy Recommendation of CASSIDY C6-C7 #1. Risks, benefits of procedure discussed and patient verbalized understanding. Admits to anti- coagulant use or medical history of diabetes. Protocol for discontinuation/ continuation of medications andre procedure discussed. All questions answered. I have spent greater than 30 minutes on patient care today. Dr Coello was available by phone for the evaluation of this patient. The time was used to review the medical records including relevant urine studies and Prescription history (MAPs), review of the available imaging, evaluation and examination of the patient, coordination of care with the medical staff and if applicable referring physicians, as well as creation of the medical record - Pain Location Bilateral Lower Neck Non-Pharmacological Interventions: Chiropractic Treatment, Heat, Ice, Inactivity, Position/Reposition Pharmacological Interventions: PRN Medication, Topical Medication PQRS Narrative: Smoking Status Former smoker Home Medications: Ambulatory Orders Montelukast Sodium [Singulair] 10 mg PO HS 09/13/14 Simvastatin [Zocor] 20 mg PO HS 09/13/14 Triamterene/Hydrochlorothiazid [Dyazide 37.5-25 Capsule] 1 cap PO QAM 09/13/14 dilTIAZem HCL [Diltiazem ER] 240 mg PO QAM 09/13/14 Carvedilol [Coreg] 12.5 mg PO BID 11/27/15 Fluticasone Nasal [place] [Flonase Nasal [place]] 1 - 2 spray EA NOSTRIL DAILY PRN 11/27/15 Baclofen [Lioresal] 10 mg PO TID PRN 10/27/18 Ergocalciferol (Vitamin D2) [Vitamin D2] 50,000 unit PO TH 10/27/18 Omeprazole [PriLOSEC] 20 mg PO AC-BID 10/27/18 lisinopriL [Zestril] 20 mg PO DAILY 10/27/18 metFORMIN HCL [Glucophage] 500 mg PO BID 10/27/18 Loratadine [Claritin] 10 mg PO DAILY 08/16/20 Controlled Substance Measures - Controlled Substance Measures Is patient prescribed a controlled substance at discharge?: No
== END ==
LOC: PNWHC3 07:58
PROVIDERS: ATTEND Specialist
DX: M47.22 Other spondylosis with radiculopathy, cervical region (principal); Z87.891 Personal history of nicotine dependence
CPT/HCPCS: 99211